=== PATIENT | male | born 1960 | race Caucasian/White ===

== ENCOUNTER 2021-11-09 17:54 | Inpatient (IN) | payer OTHER, SELFPAY ==
[~2021-11-09] VITALS: Ht 190.5 cm; Wt 94.5 kg
[2021-11-09 17:55] VITALS: BP_SYST 187
--- NOTE | 2021-11-09 17:58 | NUR ---
Placed in room 04 . Placed on environmental lead, blood pressure machine and pulse oximeter. To gown for exam. Side rails up.
--- NOTE | 2021-11-09 17:59 | NUR ---
Note jonathanayleen in EDM - 11/09/21 at 1827 by SDEDJT Patient VIOLETA from [facility] with extensive medical history. C/C C/P x 45 minutes, described as "burnin." Immediately placed on playground official. BP elevated; otherwise VSS. Awaiting medical evaluation.
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
--- NOTE | 2021-11-09 18:08 | NUR ---
ASA 162 mg given in field; not to be administered here per Dr Sanders.
--- NOTE | 2021-11-09 18:09 | NUR ---
Dr Sanders to bedside for evaluation
--- NOTE | 2021-11-09 18:10 | NUR ---
COVID swab collected at bedside and sent to lab
--- NOTE | 2021-11-09 18:14 | NUR ---
CXR being done at bedside
[2021-11-09] MEDS ORDERED: ASPIRIN 81 MG TAB.CHEW PO ONE (18:15)
--- NOTE | 2021-11-09 18:30 | NUR ---
Patient placed on 2L oxygen per nasal cannula
[2021-11-09 18:37] LABS: BASOPHILS # (AUTO) 0.1 K/uL (0.0-0.2); BASOPHILS % (AUTO) 0.8 % (0.0-2.0); EOSINOPHILS # (AUTO) 0.5 K/uL (0.0-0.4); HEMATOCRIT 34.6 % (36-54); HEMOGLOBIN 11.1 g/dL (14.0-18.0); LYMPHOCYTES # (AUTO) 2.1 K/uL (1.0-5.5); MEAN CORPUSCULAR HEMOGLOBIN 27 pg (27-31); MEAN CORPUSCULAR HGB CONC 32 % (32-36); MEAN CORPUSCULAR VOLUME 85 fL (79.0-98.0); MONOCYTES # (AUTO) 0.6 K/uL (0.0-1.0); MONOCYTES % (AUTO) 7.4 % (1.7-9.3); NEUTROPHILS # (AUTO) 4.9 K/uL (1.8-7.7); NEUTROPHILS % (AUTO) 59.8 % (40.0-70.0); PLATELET COUNT (AUTO) 307 K/uL (130-430); RED BLOOD CELL COUNT(AUTO) 4.07 MIL/uL (4.2-6.2); WHITE BLOOD COUNT (AUTO) 8.2 K/uL (4.8-10.8)
--- NOTE | 2021-11-09 18:42 | NUR ---
Patient resting in bed; in no acute distress. Awaiting lab results and further evaluation. Will continue to monitor.
[2021-11-09 18:44] LABS: CALCIUM 8.3 mg/dL (8.4-11.0); CREATININE 2.64 mg/dL (0.55-1.30); POTASSIUM 4.7 mmol/L (3.5-5.1)
[2021-11-09 18:49] LABS: ALBUMIN 2.6 g/dL (3.4-4.8); TOTAL BILIRUBIN 0.2 mg/dL (0.0-1.0)
[2021-11-09] MEDS ORDERED: CARV6.2554 PO (18:50)
[2021-11-09] MEDS ORDERED: GLIP5TAB13 PO (18:50)
[2021-11-09] MEDS ORDERED: ESCI10TA PO (18:50)
[2021-11-09] MEDS ORDERED: LIP80 PO (18:50)
[2021-11-09] MEDS ORDERED: ARIP5TAB10 PO (18:50)
[2021-11-09] MEDS ORDERED: ASPI-1155 PO (18:54)
[2021-11-09] MEDS ORDERED: PRO40 PO (18:54)
[2021-11-09] MEDS ORDERED: TAMS-11 PO (18:54)
[2021-11-09] MEDS ORDERED: COR6.25 PO (18:54)
[2021-11-09] MEDS ORDERED: NITSL SL (18:54)
[2021-11-09] MEDS ORDERED: SSNOVOLOG SUBCUT (18:54)
--- NOTE | 2021-11-09 19:12 | NUR ---
Report given to Josephine GRACIA to assume care of patient. BP more elevated than when intially came; 217/102. Dr Sanders informed. Orders to follow.
[2021-11-09] MEDS ORDERED: cloNIDine HCL 0.1 MG TABLET PO ONE (19:15)
--- NOTE | 2021-11-09 19:20 | NUR ---
Patient AAOx4 bib [facility] for chest pain. denies any sucidial ideation at this time. vss.
--- NOTE | 2021-11-09 19:58 | NUR ---
Spoke to Denisa () regarding update on pt staying at the hospital. would like to have another update as soon as the patient gets moved into room.
--- NOTE | 2021-11-09 20:38 | NUR ---
Patient will be admitted to care of [facility]. Admitted to TELE unit. PENDING ROOM ASSIGNMENT. Belongings list completed. Complete and up to date summary report printed. SBAR report to be given at bedside with opportunity for questions.
--- NOTE | 2021-11-09 21:00 | NUR ---
Patient's code status is FULL CODE paperwork completed and placed in chart.
[2021-11-09] MEDS ORDERED: NITROGLYCERIN 0.4 MG TAB.SUBL SL SCH (22:00)
[2021-11-09] MEDS ORDERED: ACETAMINOPHEN 325 MG TABLET PO PRN (22:00)
[2021-11-09] MEDS ORDERED: TEMAZEPAM 15 MG CAPSULE PO PRN (22:00)
[2021-11-09] MEDS ORDERED: cloNIDine HCL 0.1 MG TABLET PO PRN (22:00)
[2021-11-09] MEDS ORDERED: INSULIN REGULAR, HUMAN 100 UNITS/ML, 10 ML VIAL (humuLIN R) SUBCUT PRN (22:00)
--- NOTE | 2021-11-09 22:05 | NUR ---
Transfer to TELE via ACLS protocol. Licensed nurse present. IV present no signs or symptoms of infiltration.
--- NOTE | 2021-11-09 22:20 | NUR ---
Admission Note Received patient from ER with diagnosis of CHEST PAIN. Initial Plan of Care discussed-patient verbalized understanding. Oriented to room, call light, pain management and safety.
[2021-11-09 22:30] VITALS: BP_SYST 185
[2021-11-09] MEDS: CARVEDILOL 25 MG TABLET (COREG) PO SCH (23:07)
--- NOTE | 2021-11-10 | NUR ---
ROUNDING NOTES Patient resting in bed - no s/s pain or distress noted. Respirations even and unlabored - head of bed elevated. IV site patent - no s/s redness, infection, or infiltration. Bed locked and in lowest position. Call light within reach - bed alarm on. Blood pressure being monitored at this time.
[2021-11-10 01:45] VITALS: BP_SYST 109
--- NOTE | 2021-11-10 02:00 | NUR ---
ROUNDING NOTES Patient resting in bed - no s/s pain or distress noted. Respirations even and unlabored - head of bed elevated. IV site patent - no s/s redness, infection, or infiltration. Bed locked and in lowest position. Call light within reach - bed alarm on. Patient blood pressure stabilized at this time.
--- NOTE | 2021-11-10 04:00 | NUR ---
ROUNDING NOTES Patient resting in bed - no s/s pain or distress noted. Respirations even and unlabored - head of bed elevated. IV site patent - no s/s redness, infection, or infiltration. Bed locked and in lowest position. Call light within reach - bed alarm on. Patient asleep.
--- NOTE | 2021-11-10 05:01 | NUR ---
CONSULTATION PAGED/CALLED Reason for Consultation: CHEST PAIN Person Who was Notified: NATHAN Consulting Physician: SURJIT Gizzard Puller Specialty: Ordering Physician: ANKIT
--- NOTE | 2021-11-10 06:58 | NUR ---
CLOSING NOTES Patient resting in bed - no s/s pain or distress noted. Respirations even and unlabored - head of bed elevated. IV site patent - no s/s redness, infection, or infiltration. Bed locked and in lowest position. Call light within reach - bed alarm on.
[2021-11-10 07:52] LABS: BASOPHILS # (AUTO) 0.1 K/uL (0.0-0.2); BASOPHILS % (AUTO) 0.8 % (0.0-2.0); EOSINOPHILS # (AUTO) 0.5 K/uL (0.0-0.4); LYMPHOCYTES % (AUTO) 29.3 % (20.5-51.5); MEAN CORPUSCULAR HEMOGLOBIN 28 pg (27-31); MEAN CORPUSCULAR HGB CONC 32 % (32-36); MEAN CORPUSCULAR VOLUME 85 fL (79.0-98.0); MONOCYTES # (AUTO) 0.5 K/uL (0.0-1.0); MONOCYTES % (AUTO) 7.6 % (1.7-9.3); NEUTROPHILS # (AUTO) 3.8 K/uL (1.8-7.7); NEUTROPHILS % (AUTO) 55.3 % (40.0-70.0); PLATELET COUNT (AUTO) 293 K/uL (130-430); RED BLOOD CELL COUNT(AUTO) 3.64 MIL/uL (4.2-6.2); RED CELL DISTRIBUTION WIDTH 16.8 % (9.0-15.0)
[2021-11-10 08:00] VITALS: BP_SYST 133
[2021-11-10 08:09] LABS: CALCIUM 7.9 mg/dL (8.4-11.0); CREATININE 2.54 mg/dL (0.55-1.30); POTASSIUM 4.5 mmol/L (3.5-5.1)
[2021-11-10] MEDS: CITALOPRAM HYDROBROMIDE 20 MG TABLET PO SCH (08:58)
[2021-11-10] MEDS: ASPIRIN 81 MG TAB.CHEW PO SCH (08:58)
[2021-11-10] MEDS: ARIPiprazole 5 MG TAB PO SCH (08:58)
[2021-11-10] MEDS: CARVEDILOL 25 MG TABLET (COREG) PO SCH ×2 (08:59→21:12)
[2021-11-10] MEDS: TAMSULOSIN HCL 0.4 MG CAP PO SCH ×2 (08:59→21:11)
[2021-11-10] MEDS: PANTOPRAZOLE SODIUM 40 MG TAB PO SCH (08:59)
[2021-11-10] MEDS ORDERED: ESCITALOPRAM OXALATE 10 MG TABLET PO SCH (09:00)
[2021-11-10 12:00] VITALS: BP_SYST 122
[2021-11-10 16:00] VITALS: BP_SYST 143
--- NOTE | 2021-11-10 16:05 | NUR ---
WOUND EVALUATION: Late note for 1605 secondary to patient care. Wound Consult received from Dr. Austin. Thank you, Dr. Austin, for the consult. Patient received in a Dayday Bed with an Isoflex ELVIA mattress, awake, alert, and oriented. Patient is able to turn in bed independently. Lloyd Score is a 17. Past Medical History: Hypertension, Coronary Artery Disease, Diabetes Mellitus, Depression, severe Peripheral Vascular Disease of the lower extremities, Left Below-Knee Amputation, Coronary Artery Bypass Triple Vessels, Pacemaker placement. Recent Labs: WBC 7.0, RBC 3.64, hemoglobin 10.0, hematocrit 31.0, BUN 21, creatinine 2.54, GFR 28, glucose 115, POC glucose 101, calcium 7.9, albumin 2.6. Intrinsic factors that delay wound healing: Coronary Artery Disease, Diabetes Mellitus, severe Peripheral Vascular Disease of the lower extremities. Extrinsic factors that delay wound healing: Decreased mobility. No microbiology reports. Wound Assessment: 1. Right Distal Medial Lower Extremity: Vascular ulcer, present on admission. Wound site has 100% black scab. No odor, no drainage. Periwound intact. Periwound and surrounding tissue around leg and posterior calf have erythema. Extremity has calor and moderate nonpitting edema. Wound measures 5.7 cm x 3.3 cm. 2. Right Distal Anterior [place]: Vascular ulcer, present on admission. Wound site has 100% black scab. No odor, no drainage. Periwound intact. Periwound and surrounding tissue around leg and posterior calf have erythema. Extremity has calor and moderate nonpitting edema. Wound measures 1.7 cm x 2.2 cm. 3. Right Anterior [place], Superior to Site 3: Vascular ulcer, present on admission. Wound site has 100% black scab, with soft dull pink raised tissue with fluctuance. No odor, no drainage. Periwound intact. Periwound and surrounding tissue around leg and posterior calf have erythema. Extremity has calor and moderate nonpitting edema. Wound measures 2.7 cm x 2.0 cm. Recommend: [place] wounds with Betadine daily. Contact wound care nurse if sites open or drain. Also recommend: Reposition patient every 2 hours with pillow support and off-load pressure areas with pillows for pressure re-distribution. Offload, elevate and float bilateral heels with pillows. Perform skin care and monitor skin integrity Q shift. Use moisture barrier cream on buttocks and other moisture susceptible areas QID and as needed for soiling. Addendum: 11/10/21 at 1752 by Naveed Garcia RN Addendum: 4. Right Medial Malleolus: Multiple small black scabs, present on admission. No odor, no drainage. Dry, stable. Recommend: No dressings needed. Continue monitor site every shift.
--- NOTE | 2021-11-10 18:00 | NUR ---
NURSING NOTES [id number]: 0710AM: PATIENT IS RESTING IN BED QUIETLY. NO ADDITIONAL DISTRESS NOTED. BED IN LOW AND LOCK POSITION. CALL LIGHT WITHIN REACH. STABLE CONDITION AT THIS TIME 02 SAT 99% IN 2LNC. WILL CONT TO MONITOR. 0800AM: PATIENT IS EATING HIS BREAKFAST. EXPLAINED PLAN OF CARE AND PATIENT VERBALIZED UNDERSTANDING. WILL CONT TO MONITOR. 1000AM: PATIENT IS RESTING IN BED, ASLEEP. NO ADDITIONAL DISTRESS NOTED. WILL CONT TO MONITOR. 1200PM: PATIENT IS RESTING IN BED EATING HIS LUNCH. NO CHANGE FROM PREVIOUS ASSESSMENT. 1400: PATIENT IS RESTING IN BED CHIT CHATTING WITH HIS AND DAUGHTER AT THE BEDSIDE. EXPLAINED POC TO PER PATIENT REQUEST. 1430: WOUND CARE NURSE KRYSTA AT THE BEDSIDE ASSESSING BLE. 1500: APPLIED BETADINE TO RLE AND CODING TEAM LEAD PER WOUND CARE NURSE INSTRUCT. 1600: PATIENT IS RESTING IN BED, ASLEEP. NO ADDITIONAL DISTRESS NOTED. WILL CONT TO MONITOR. 1800: PATIENT IS RESTING IN BED EATING HIS DINNER. NO CHANGE FROM PREVIOUS ASSESSMENT. WILL CONT TO MONITOR.
--- NOTE | 2021-11-10 19:00 | NUR ---
CLOSING NOTES: 1899: PATIENT IS SITTING AT THE SIDE OF THE BED IN A STABLE CONDITION. NO ADDITIONAL DISTRESS NOTED. PATIENT IS DRINKING HIS COFFEE. WILL CONT TO MONITOR. Addendum: 11/10/21 at 1933 by [employer] curriculum coordinator WRONG PATIENT
--- NOTE | 2021-11-10 19:00 | NUR ---
CLOSING NOTES: 1900: PATIENT IS RESTING IN BED ASLEEP. STABLE CONDITION THROUGHOUT THE SHIFT. NO ADDITIONAL DISTRESS NOTED. WILL CONT TO MONITOR.
--- NOTE | 2021-11-10 19:00 | NUR ---
CHF AND DM EDUCATION BUT NON-COMPLIANT WITH DIET [id number] 0800 AM: EDUCATE PATIENT ON CHF AND DM REGARDING LIFESTYLE AND FLUID RESTRICTIONS. SAT WITH PATIENT 20 MINUTES AND HE VERBALIZED UNDERSTANDING. 0900AM: PATIENT CONSTANTLY ASKING FOR ANOTHER CUP OF COFFEE. EXPLAINED FLUIDS RESTRICTION AND DIET. BUT DID CONTINUE TO ASK FOR ANOTHER CUP OF COFFEE. 1230PM: ASKING FOR ANOTHER CUP OF COFFEE. EXPLAINED RISK AND BENEFITS. 1530: ASKING FOR SNACKS. EXPLAINED RISK AND BENEFITS. 1830: ASKING FOR ANOTHER CUP OF COFFEE. PATIENT NOTED TO BE NON-COMPLIANT WITH DIET. DR PHAM AT THE NURSES STATION AND MADE AWARE. Addendum: 11/10/21 at 1933 by [facility] fish roe technician WRONG PATIENT
--- NOTE | 2021-11-10 20:00 | NUR ---
opening notes Pt in bed resting awake,alert and oriented x4.Vital sign stable.Able to verbalized what he needs.Call light within reach.
[2021-11-10 20:21] VITALS: BP_SYST 149
[2021-11-10] MEDS ORDERED: ENOXAPARIN SODIUM 40 MG/0.4 ML SYRINGE SUBCUT SCH (21:00)
[2021-11-10] MEDS ORDERED: ATORVASTATIN 20 MG TABLET PO SCH (21:00)
[2021-11-11] VITALS: BP_SYST 135
--- NOTE | 2021-11-11 06:13 | NUR ---
pt refused medication due results blood sugar check.
--- NOTE | 2021-11-11 06:24 | NUR ---
Ending notes Pt still asleep right now.No s/s of pain or discomfort at this time.Call light within reach.
--- NOTE | 2021-11-11 08:00 | NUR ---
Initial notes Awake and oriented, denies any chest pain or shortness of breath. Enc. to call for help as needed. call light within reach.
[2021-11-11 08:01] LABS: BASOPHILS % (AUTO) 0.5 % (0.0-2.0); EOSINOPHILS # (AUTO) 0.5 K/uL (0.0-0.4); EOSINOPHILS % (AUTO) 7.4 % (0.0-4.0); HEMATOCRIT 31.7 % (36-54); HEMOGLOBIN 10.3 g/dL (14.0-18.0); LYMPHOCYTES # (AUTO) 2.1 K/uL (1.0-5.5); LYMPHOCYTES % (AUTO) 33.4 % (20.5-51.5); MEAN CORPUSCULAR HEMOGLOBIN 28 pg (27-31); MEAN CORPUSCULAR HGB CONC 33 % (32-36); MEAN CORPUSCULAR VOLUME 86 fL (79.0-98.0); MONOCYTES # (AUTO) 0.5 K/uL (0.0-1.0); MONOCYTES % (AUTO) 7.9 % (1.7-9.3); NEUTROPHILS # (AUTO) 3.1 K/uL (1.8-7.7); NEUTROPHILS % (AUTO) 50.8 % (40.0-70.0); PLATELET COUNT (AUTO) 290 K/uL (130-430); RED BLOOD CELL COUNT(AUTO) 3.69 MIL/uL (4.2-6.2); RED CELL DISTRIBUTION WIDTH 16.6 % (9.0-15.0); WHITE BLOOD COUNT (AUTO) 6.2 K/uL (4.8-10.8)
[2021-11-11 08:32] VITALS: BP_SYST 137
[2021-11-11 08:41] LABS: ALBUMIN 2.2 g/dL (3.4-4.8); CREATININE 2.48 mg/dL (0.55-1.30); POTASSIUM 4.4 mmol/L (3.5-5.1); THYROID STIMULATING HORMONE 3.58 uIu/mL (0.36-3.74); TOTAL BILIRUBIN 0.2 mg/dL (0.0-1.0)
[2021-11-11] MEDS: TAMSULOSIN HCL 0.4 MG CAP PO SCH (09:06)
[2021-11-11] MEDS: PANTOPRAZOLE SODIUM 40 MG TAB PO SCH (09:06)
[2021-11-11] MEDS: ASPIRIN 81 MG TAB.CHEW PO SCH (09:06)
[2021-11-11] MEDS: ARIPiprazole 5 MG TAB PO SCH (09:06)
[2021-11-11] MEDS: CITALOPRAM HYDROBROMIDE 20 MG TABLET PO SCH (09:06)
[2021-11-11] MEDS: CARVEDILOL 25 MG TABLET (COREG) PO SCH (09:07)
[2021-11-11 11:25] VITALS: BP_SYST 115
--- NOTE | 2021-11-11 11:30 | NUR ---
Notes- patient's called and wants his to be discharge, per , she will come and will draft roller picker her .
--- NOTE | 2021-11-11 12:10 | NUR ---
Notes Called and spoked to Dr. Arita made aware that patient's wants to go home and will pick him up. PerMd just let them signed the AMA form if they cant wait for him.
--- NOTE | 2021-11-11 14:50 | NUR ---
Notes per tatyana nurse, pt left AMA with while at lunch.
== END 2021-11-11 14:50 | disposition left against medical advice (07) | DRG 206 ==
LOC: SED 17:54 → STU 21:17
PROVIDERS: ADMIT Family Medicine; ATTEND Family Medicine
DX: M94.0 Chondrocostal junction syndrome [Tietze] (principal); I13.0 Hypertensive heart and chronic kidney disease with heart failure and stage 1 through stage 4 chronic kidney disease, or unspecified chronic kidney disease; I42.9 Cardiomyopathy, unspecified; N17.9 Acute kidney failure, unspecified; Z53.29 Procedure and treatment not carried out because of patient's decision for other reasons; N18.9 Chronic kidney disease, unspecified; E11.51 Type 2 diabetes mellitus with diabetic peripheral angiopathy without gangrene; E11.22 Type 2 diabetes mellitus with diabetic chronic kidney disease; F32.9 Major depressive disorder, single episode, unspecified; I25.10 Atherosclerotic heart disease of native coronary artery without angina pectoris; I50.9 Heart failure, unspecified; Z20.822 Contact with and (suspected) exposure to COVID-19; E11.42 Type 2 diabetes mellitus with diabetic polyneuropathy; E78.00 Pure hypercholesterolemia, unspecified; K21.9 Gastro-esophageal reflux disease without esophagitis; Z83.3 Family history of diabetes mellitus; Z81.8 Family history of other mental and behavioral disorders; Z89.512 Acquired absence of left leg below knee; Z95.0 Presence of cardiac pacemaker; Z95.1 Presence of aortocoronary bypass graft; Z91.51 Personal history of suicidal behavior; Z79.4 Long term (current) use of insulin; Z79.899 Other long term (current) drug therapy; Z79.82 Long term (current) use of aspirin
CPT/HCPCS: 36415; 71045; 80048; 80053; 80061; 82550; 82962; 83880; 84443; 84484; 85025; 93005; 93306; 99285; G0378; J1650